=== PATIENT | male | born 1950 | race Caucasian/White ===

== ENCOUNTER 2022-10-03 06:50 | Day surgery (SDC) | payer MEDICARE, MEDICAID ==
[2022-10-01 10:03] LABS: COVID AG,FIA SOURCE NASAL SWAB
[~2022-10-03] VITALS: Ht 162.6 cm; Wt 65.9 kg
[~2022-10-03 06:50] MED LIST: CITA10TA99 PO; DIAZEPAM 5 MG TABLET PO ONE; DiphenhydrAMINE HCL 50 MG CAPSULE PO ONE; GABA-1181 PO; HYDR-4723 PO; LISI-893 PO; METH-659 PO; SODIUM CHLORIDE 0.9% 500 ML IV ONE
[2022-10-03] MEDS ORDERED: SODIUM CHLORIDE 0.9% 1,000 ML IV ONE ×2 (07:00→11:15)
[2022-10-03] MEDS ORDERED: SODIUM CHLORIDE 0.9% 1,000 ML ONE (07:08)
[2022-10-03] MEDS ORDERED: DIAZEPAM 5 MG TABLET ONE (07:24)
[2022-10-03] MEDS ORDERED: DiphenhydrAMINE HCL 50 MG CAPSULE ONE (07:24)
[2022-10-03] MEDS ORDERED: ASPI-1444 PO (07:39)
[2022-10-03] MEDS ORDERED: LISI-892 PO (07:40)
[2022-10-03] MEDS ORDERED: METO25TA6 PO (07:41)
[2022-10-03] MEDS ORDERED: ATOR40TA28 PO (07:42)
[2022-10-03] MEDS ORDERED: PRAS10TA6 PO (07:43)
[2022-10-03 08:33] LABS: BASOPHILS % (AUTO) 0.7 % (0.0-2.0); EOSINOPHILS % (AUTO) 1.8 % (1.0-6.0); HEMATOCRIT 39.9 % (41-53); HEMOGLOBIN 13.5 g/dL (13.5-17.5); LYMPHOCYTES # (AUTO) 1.5 K/uL (1.0-4.8); LYMPHOCYTES % (AUTO) 27.9 % (22.0-44.0); MEAN CORPUSCULAR HEMOGLOBIN 31.4 pg (26.0-34.0); MEAN CORPUSCULAR VOLUME 93 fL (80-100); MONOCYTES # (AUTO) 0.9 K/uL (0.1-1.0); MONOCYTES % (AUTO) 17.1 % (2.0-9.0); NEUTROPHILS # (AUTO) 2.7 K/uL (1.8-7.7); NEUTROPHILS % (AUTO) 52.5 % (40.0-70.0); PLATELET COUNT (AUTO) 204 K/uL (150-450); RED BLOOD CELL COUNT(AUTO) 4.31 MIL/uL (4.50-5.90); RED CELL DISTRIBUTION WIDTH 13.5 % (11.5-14.5)
[2022-10-03 08:47] LABS: ANION GAP 6 mmol/L (8-16); CALCIUM, TOTAL 9.9 mg/dL (8.8-10.5); CARBON DIOXIDE 29 mmol/L (22-29); CHLORIDE 103 mmol/L (98-107); CREATININE 0.86 mg/dL (0.60-1.30); GLUCOSE,RANDOM 106 mg/dL (70-110); SODIUM SERUM 138 mmol/L (136-145); UREA NITROGEN, BLOOD 21 mg/dL (7-18)
[2022-10-03 08:51] LABS: GLOMERULAR FILTR. RATE CALC > 60 mL/min (>60)
[2022-10-03 08:55] LABS: PROTHROMBIN TIME 10.4 SEC (9.4-11.6)
[2022-10-03] MEDS ORDERED: LIDOCAINE/PF 1% 30 ML VIAL ONE (10:09)
[2022-10-03] MEDS ORDERED: IOHEXOL 300 MG/ML 100 ML VIAL ONE (10:09)
[2022-10-03] MEDS ORDERED: SODIUM BICARBONATE 50 MEQ/50 ML VIAL ONE (10:09)
[2022-10-03] MEDS ORDERED: HEPARIN SODIUM 1000 UNITS/NS 1,000 ML ONE (10:10)
[2022-10-03] MEDS ORDERED: IOHEXOL 300 MG/ML 100 ML VIAL IARTER ONE (10:15)
[2022-10-03] MEDS ORDERED: HEPARIN SODIUM 1000 UNITS/NS 1,000 ML IARTER ONE (10:15)
[2022-10-03] MEDS ORDERED: LIDOCAINE 1% 30 ML/SOD BICARB 8.4% 4 ML SQ ONE (10:15)
[2022-10-03] MEDS ORDERED: NITROGLYCERIN/D5W 50 MG/250 ML IV BOTTLE ICOR ONE (10:15)
[2022-10-03] MEDS ORDERED: IODIXANOL 320 MG/ML 100 ML VIAL ONE ×2 (10:20→11:25)
[2022-10-03] MEDS ORDERED: IOHEXOL 300 MG/ML 50 ML VIAL ONE (10:20)
[2022-10-03] MEDS ORDERED: FentaNYL CITRATE PF 100 MCG/2 ML VIAL ONE (10:29)
[2022-10-03] MEDS ORDERED: MIDAZOLAM HCL 2 MG/2 ML VIAL ONE (10:29)
[2022-10-03] MEDS ORDERED: MIDAZOLAM HCL 2 MG/2 ML VIAL IVP ONE (10:45)
[2022-10-03] MEDS ORDERED: FentaNYL CITRATE PF 100 MCG/2 ML VIAL IVP ONE (10:45)
[2022-10-03] MEDS ORDERED: SODIUM CHLORIDE 0.9% 500 ML IV ONE ×2 (11:15→12:00)
[2022-10-03] MEDS ORDERED: HYDROCODONE/ACETAMINOPHEN 5-325 MG TABLET PO PRN (12:00)
== END 2022-10-03 15:00 | disposition home or self-care (01) ==
LOC: CATHLAB 06:50
PROVIDERS: ATTEND Internal Medicine Cardiovascular Disease
DX: I25.10 Atherosclerotic heart disease of native coronary artery without angina pectoris (principal); I70.211 Atherosclerosis of native arteries of extremities with intermittent claudication, right leg; I65.23 Occlusion and stenosis of bilateral carotid arteries; Z79.899 Other long term (current) drug therapy
CPT/HCPCS: 87426; 37225; 80048; 85025; 85610; 85730; 36415; 99152; 99153; 93005; 93458; 75710; 75625; C9803; C1724; C1760; C1887; C2623; J3010; J1644; J3490 ×2; J2250; J7030; Q9967; 36200; 37229; 75630; 75716; 75962